=== PATIENT | male | born 1990 | race African-American/Black ===

== ENCOUNTER 2021-07-14 13:36 | Emergency (ER) | payer OTHER ==
[~2021-07-14] VITALS: Ht 170.2 cm; Wt 100.0 kg
[2021-07-14 13:53] VITALS: BP 134/68
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
[2021-07-14] MEDS ORDERED: NEOMY/BACITR/POLYMYXIN OINT PACKET. TP ONE (14:15)
== END 2021-07-14 14:40 | disposition home or self-care (01) ==
LOC: ER 13:36
DX: S30.810D Abrasion of lower back and pelvis, subsequent encounter (principal); X58.XXXD Exposure to other specified factors, subsequent encounter
CPT/HCPCS: 99282

== ENCOUNTER 2021-07-18 15:35 | Emergency (ER) | payer OTHER ==
[~2021-07-18] VITALS: Ht 170.2 cm; Wt 100.0 kg
[2021-07-18 15:46] VITALS: BP 140/83
[2021-07-18] MEDS ORDERED: NEOMY/BACITR/POLYMYXIN OINT PACKET. TP ONE (16:00)
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
== END 2021-07-18 16:40 | disposition home or self-care (01) ==
LOC: ER 15:35
DX: Z48.00 Encounter for change or removal of nonsurgical wound dressing (principal)
CPT/HCPCS: 99282